=== PATIENT | male | born 1950 | race Caucasian/White ===

== ENCOUNTER 2016-12-08 08:10 | Emergency (ER) | payer MEDICARE, OTHER ==
[2016-12-08 08:26] VITALS: BP 149/93
--- NOTE | 2016-12-08 08:36 | UC ---
Throat Pain/Nasal Fabian HPI - HPI Summary HPI Summary: 3 weeks of worsening sinus pain congestion and nasal drainage no fevers - History of Current Complaint Chief Complaint: UCGeneralIllness Stated Complaint: COUGH,CHEST CONGESTION,SINUS Time Seen by Provider: 12/08/16 08:30 Hx Obtained From: Patient Onset/Duration: Gradual Onset, Lasting Weeks - 3, Still Present Severity: Moderate Pain Intensity: 5 Pain Scale Used: 0-10 Numeric Cough: None Associated Signs & Symptoms: Positive: Sinus Discomfort, Nasal Discharge - Allergies/Home Medications Allergies/Adverse Reactions: Allergies Allergy/AdvReac Type Severity Reaction Status Date / Time No Known Allergies Allergy Verified 12/08/16 08:17 Home Medications: Home Medications Phenylephrine-Diphenhydramine- [Mucinex Sinus-Max Day/Nig] 1 cap PO SEE INSTRUCTIONS PRN 12/08/16 [History Confirmed 12/08/16] PMH/Surg Hx/FS Hx/Imm Hx Previously Healthy: No Endocrine History Of: Reports: Dyslipidemia Cardiovascular History Of: Reports: Hypertension - Surgical History Surgical History: Yes Surgery Procedure, Year, and Place: bladder sling 2012. prostate surgery - Family History Known Family History: Positive: None Family History: no reported family medical issues in lineage - Social History Occupation: Retired Lives: With Family Alcohol Use: Rare Substance Use Type: None Smoking Status (MU): Never Smoked Tobacco Review of Systems Constitutional: Negative Skin: Negative Eyes: Negative ENT: Nasal Discharge Respiratory: Negative Cardiovascular: Negative Gastrointestinal: Negative Genitourinary: Negative Motor: Negative Neurovascular: Negative Musculoskeletal: Negative Neurological: Headache - frontal ethmoid sinus area Psychological: Negative All Other Systems Reviewed And Are Negative: Yes Physical Exam Triage Information Reviewed: Yes Appearance: Well-Appearing, No Pain Distress, Well-Nourished Vital Signs: Initial Vital Signs Temp 98.9 F 12/08/16 08:22 Pulse 69 12/08/16 08:22 Resp 20 12/08/16 08:22 BP 149/93 12/08/16 08:22 Pulse Ox 96 12/08/16 08:22 Vital Signs Reviewed: Yes Eye Exam: Normal Eyes: Positive: Conjunctiva Clear ENT Exam: Normal ENT: Positive: Normal ENT inspection, Hearing grossly normal, Pharynx normal, Nasal congestion, TMs normal. Negative: Nasal drainage, Tonsillar swelling, Tonsillar exudate, Trismus, Muffled/hoarse voice Dental Exam: Normal Neck exam: Normal Neck: Positive: Supple, Nontender, No Lymphadenopathy Respiratory Exam: Normal Respiratory: Positive: Chest non-tender, Lungs clear, Normal breath sounds, No respiratory distress, No accessory muscle use Cardiovascular Exam: Normal Cardiovascular: Positive: RRR, No Murmur, Pulses Normal, Brisk Capillary Refill Musculoskeletal Exam: Normal Musculoskeletal: Positive: Strength Intact, ROM Intact, No Edema Neurological Exam: Normal Neurological: Positive: Alert, Muscle Tone Normal Psychological Exam: Normal Skin Exam: Normal Throat Pain/Nasal Course/Dx - Course Course Of Treatment: Augmentin, flonase, mucinex d cool mist humidifer, follow with pcp re-check prn - Differential Dx/Diagnosis Differential Diagnosis/HQI/PQRI: Influenza, Pharyngitis, Sinusitis, URI Provider Diagnoses: Sinusitis Discharge - Discharge Plan Condition: Stable Disposition: HOME Prescriptions: Amoxicillin/Clavulanate TAB* [Augmentin TAB 875*] 875 mg PO BID #20 tab Fluticasone NASAL SPRAY 50MCG* [Flonase NASAL SPRAY 50MCG*] 2 spray BOTH NARES DAILY #1 btl Patient Education Materials: How to Use Nasal [place] (ED), Sinusitis (ED), Decongestant/Expectorant (By mouth) Referrals: No Primary Care Phys,NOPCP [Medical Doctor] - Additional Instructions: Follow with your primary care provider or return as needed should symptoms worsen or fail to improve
== END 2016-12-08 08:44 | disposition home or self-care (01) ==
LOC: UCCORT 08:10
DX: R09.81 Nasal congestion (principal); J32.9 Chronic sinusitis, unspecified
CPT/HCPCS: 99212; G0463

== ENCOUNTER 2017-05-28 11:46 | Emergency (ER) | payer MEDICARE, OTHER ==
[2017-05-28] MEDS ORDERED: EPINEPHrine AMP 1 MG/ML IM ONE (11:53)
[2017-05-28] MEDS ORDERED: diPHENhydraMINE IV* 50 MG/ML 1 ml VIAL (BENADRYL) IV ONE (11:54)
[2017-05-28] MEDS ORDERED: methylPREDNISolone 125 MG* 2 ML VIAL IV ONE (11:54)
[2017-05-28] MEDS ORDERED: Famotidine IV* 10 MG/ML 2 ML (20 mg) IV SLOW PU ONE (11:55)
[2017-05-28] MEDS ORDERED: Famotidine IV* 10 MG/ML 2 ML (20 mg) ONE (11:56)
[2017-05-28] MEDS ORDERED: NS 0.9% 1000 ML* 1,000 ML IV ONE (11:56)
--- NOTE | 2017-05-28 11:56 | UC ---
Progress - Progress Note Progress Note: Pt and examined, agree with [employer]. To ED via EMS.
--- NOTE | 2017-05-28 11:58 | UC ---
Allergic Reaction HPI - HPI Summary HPI Summary: allergic reaction to something---no known be sting usual medications and meals-- - History of Current Complaint Chief Complaint: UCAllergicReaction Stated Complaint: ALLERGIC REACTION Time Seen by Provider: 05/28/17 11:50 Hx Obtained From: Patient Onset/Duration: Sudden Onset, Still Present Severity Initially: Mild Severity Currently: Severe Location: Diffuse Character: Swelling - mouth. tounge, throat tight Aggrevating Factor(s): Nothing Alleviating Factor(s): Nothing Associated Signs And Symptoms: Positive: Throat Tightening, Other: - mouth, tounge and lips swollen - Related Hx Possible Reaction To: Unknown - Allergies/Home Medications Allergies/Adverse Reactions: Allergies Allergy/AdvReac Type Severity Reaction Status Date / Time No Known Allergies Allergy Verified 12/08/16 08:17 PMH/Surg Hx/FS Hx/Imm Hx Previously Healthy: No Endocrine History: Dyslipidemia Cardiovascular History: Hypertension - Surgical History Surgical History: Yes Surgery Procedure, Year, and Place: bladder sling 2012. prostate surgery - Family History Known Family History: Positive: None Family History: no reported family medical issues in lineage - Social History Occupation: Retired Lives: With Family Alcohol Use: Rare Substance Use Type: None Smoking Status (MU): Never Smoked Tobacco Review of Systems Constitutional: Negative Skin: Negative Eyes: Negative ENT: Negative Respiratory: Other - throat tight , tounge swollen, lips swollen Cardiovascular: Negative Gastrointestinal: Negative Genitourinary: Negative Motor: Negative Neurovascular: Negative Musculoskeletal: Negative Neurological: Negative Psychological: Negative All Other Systems Reviewed And Are Negative: Yes Physical Exam Triage Information Reviewed: Yes Appearance: Ill-Appearing, Pain Distress, Obese Vital Signs Reviewed: Yes Eye Exam: Normal Eyes: Positive: Conjunctiva Clear ENT Exam: Normal ENT: Positive: Normal ENT inspection, Hearing grossly normal, Other: - tounge lips swollen unable to vusualize pharynx past tounge. Negative: Nasal congestion, Nasal drainage Dental Exam: Normal Neck exam: Normal Neck: Positive: Supple, Nontender, No Lymphadenopathy Respiratory Exam: Normal Respiratory: Positive: Chest non-tender, Lungs clear, Normal breath sounds, No respiratory distress, No accessory muscle use Cardiovascular Exam: Normal Cardiovascular: Positive: RRR, No Murmur, Pulses Normal, Brisk Capillary Refill Musculoskeletal Exam: Normal Musculoskeletal: Positive: Strength Intact, ROM Intact, No Edema Neurological Exam: Normal Neurological: Positive: Alert, Muscle Tone Normal Psychological Exam: Normal Skin Exam: Normal Re-Evaluation - Re-Evaluation First Eval Change: Unchanged - no real change in status with epi, solumedrol, benadryl, and pepcid--- Allergic Reaction Course/Dx - Course Course Of Treatment: solumedrol, epi, pepcid, benadryl iv ns -[place] [facility] [place] - Differential Dx/Diagnosis Differential Diagnosis/HQI/PQRI: Airway Obstruction, Anaphylaxis, Angioedema Provider Diagnoses: Impending airwat obstruction - Physician Notification/Consults Discussed Patient Care With: Kita Laguna Time Discussed With Above Provider: 12:05 Instructed by Provider To: Transfer Discharge - Discharge Plan Condition: Guarded Disposition: TRANS HIGHER LVL OF CARE FAC Referrals: Wayne Miles MD [Primary Care Provider] -
[2017-05-28 12:00] VITALS: BP 135/75
== END 2017-05-28 12:07 | disposition short-term general hospital (02) ==
LOC: UCEAST 11:46
DX: J98.8 Other specified respiratory disorders (principal); I10 Essential (primary) hypertension; E78.5 Hyperlipidemia, unspecified; E66.9 Obesity, unspecified
CPT/HCPCS: 96360; 96361; 96372; 96374; 96375; 99213; G0463; J0171; J1200; J2930

== ENCOUNTER 2017-05-28 12:30 | Emergency (ER) | payer MEDICARE, OTHER ==
--- NOTE | 2017-05-28 13:32 | ED ---
Throat Pain/Nasal Congestion - HPI Summary HPI Summary: Pt here w/ lip and tongue swelling today which triggered difficulty swallowing. Went to and received epi, solumedrol, pepcid, benadryl. Pt reports swelling has improved since receiving these medications and swallowing easier. No difficulty breathing nor wheezing. Pt admits he noticed a small amount of upper lip tingling/swelling last night but didn't think much of it as he's had lip swelling episodes in the past. The first time was a few years ago - [place] a [place] and developed significant lip swelling - pt and assumed he was having a reaction to khmer fries seasoning and took benadryl - swelling eventually went down over the next 2 days. Another time, same thing happened after going to [facility] - wasn't sure if he ate a food that triggered this - again took benadryl and swelling eventually resolved. He reports this is the first time he's had 2 consecutive days of swelling of lips and first time he's had tongue swelling. Also this time, he was eating food prepared at home and all part of his routine. No new detergents, cosmetics, medications, plant/ animal exposures, insect bites, etc. Denies rash, itching, ab pain, N/V/D, wheezing, trouble breathing, eye swelling. He does take verapamil and possibly HCTZ w/ FRIDA inhibitor (has taken for years). Takes a daily ASA 81mg. Took aleve 2 days ago for shoulder pain (has this from [id number]). No h/o anaphylaxis nor angioedema. - History of Current Complaint Chief Complaint: EDAllergicReaction Time Seen by Provider: 05/28/17 12:49 Hx Obtained From: Patient, Family/Quartz Cutter - - Allergies/Home Medications Allergies/Adverse Reactions: Allergies Allergy/AdvReac Type Severity Reaction Status Date / Time No Known Allergies Allergy Verified 05/28/17 12:57 PMH/Surg Hx/FS Hx/Imm Hx Previously Healthy: Yes Endocrine/Hematology History: Denies: Hx Anticoagulant Therapy, Hx Blood Disorders, Hx Thyroid Disease, Autoimmune Disease Cardiovascular History: Reports: Hx Hypertension - verapamil, HCTZ/ Respiratory History: Denies: Hx Asthma - Cancer History Cancer Type, Location and Year: Prostate CA 2010 - Surgical History Surgery Procedure, Year, and Place: bladder sling 2012. prostate surgery Infectious Disease History: No Infectious Disease History: Denies: Hx Clostridium Difficile, Hx Hepatitis, Hx Human Immunodeficiency Virus (HIV), Hx of Known/Suspected MRSA, Hx Shingles, Hx Tuberculosis, Hx Known/ Suspected VRE, Hx Known/Suspected VRSA, History Other Infectious Disease, Traveled Outside the [place] in Last 30 Days - Family History Known Family History: Positive: None Family History: no reported family medical issues in lineage - Social History Occupation: Employed Part-time Lives: With Family Alcohol Use: Occasionally Alcohol Amount: 2 beers a week Hx Substance Use: No Substance Use Type: Reports: None Hx Tobacco Use: No Smoking Status (MU): Never Smoked Tobacco Review of Systems Constitutional: Negative Negative: Fever, Chills, Fatigue Eyes: Negative Negative: Photophobia, Blurred Vision, Diplopia, Drainage, Erythema ENT: Other - tongue/lip swelling as in HPI Negative: Dental Pain, Sore Throat, Ear Ache, Nasal Discharge Cardiovascular: Negative Negative: Palpitations, Chest Pain Respiratory: Negative Negative: Shortness Of Breath, Cough Gastrointestinal: Negative Negative: Abdominal Pain, Vomiting, Diarrhea, Nausea Positive: no symptoms reported Musculoskeletal: Negative Skin: Negative Negative: Rash Neurological: Negative Negative: Headache, Weakness, Paresthesia, Numbness Psychological: Normal All Other Systems Reviewed And Are Negative: Yes Physical Exam Triage Information Reviewed: Yes Vital Signs On Initial Exam: Initial Vitals Temp Pulse Resp BP Pulse Ox 99.0 F 70 16 174/90 97 05/28/17 12:59 05/28/17 12:59 05/28/17 12:59 05/28/17 12:59 05/28/17 12:59 Vital Signs Reviewed: Yes Appearance: Positive: Well-Appearing, No Pain Distress, Well-Nourished Skin: Positive: Warm, Dry - lips appear mildly edematous (lower > upper) - no rash observed over torso, head, extremities Head/Face: Positive: Normal Head/Face Inspection Eyes: Positive: Normal, EOMI, ROMEL, Conjunctiva Clear - no edema of [place] ENT: Positive: Hearing grossly normal, Pharynx normal, TMs normal, Other - tongue edema Lt > Rt - subtle muffled voice; handling secretions well. Negative : Nasal congestion, Nasal drainage, Tonsillar swelling, Tonsillar exudate Neck: Positive: Supple, Nontender, No Lymphadenopathy Respiratory/Lung Sounds: Positive: Clear to Auscultation, Breath Sounds Present. Negative: Stridor, Tracheal Deviation, Wheezes Cardiovascular: Positive: Normal, RRR, Pulses are Symmetrical in both Upper and Lower Extremities, S1, S2. Negative: Murmur, Rub, Leg Edema Left, Leg Edema Right Abdomen Description: Positive: Nontender, Soft Bowel Sounds: Positive: Present Musculoskeletal: Positive: Normal, Strength/ROM Intact Neurological: Positive: Normal, Sensory/Motor Intact, Alert, Oriented to Person Place, Time, CN Intact II-III Psychiatric: Positive: Normal - [place] Coma Scale Coma Scale Total: 15 Diagnostics - Vital Signs Vital Signs Temp Pulse Resp BP Pulse Ox 05/28/17 12:59 99.0 F 70 16 174/90 97 - Laboratory Lab Statement: Any lab studies that have been ordered have been reviewed, and results considered in the medical decision making process. Re-Evaluation - Re-Evaluation First Eval Change: Improved EENT Course/Dx - Course Course Of Treatment: Pt presented this morning to w/ lip and tongue swelling. Was sent here for monitoring after receiving epi, solumedrol, pepcid, benadryl and fluids - improved. H/o similar presentation minus tongue swelling. Suspect angioedema (possibly hereditary based on lack of pruritis, uriticaria, breathing sx, etc). Preliminary labs ordered here today - advised pt to stop all meds that could trigger reaction and start anti-histamine. May complete prednisone course for next 4 days (5 total). Epi pen provided in the event he has a future event. Explained importance of close f/u w/ PCP. Reviewed danger s/ sx of when to return to ED. Pt and voice understanding. - Diagnoses Provider Diagnoses: Angioedema Discharge - Discharge Plan Condition: Stable Disposition: HOME Prescriptions: Epinephrine [Epipen 2-Meir] 0.3 mg IM ONCE PRN #1 inj PRN Reason: Allergy Symptoms predniSONE TAB* [Deltasone TAB*] 40 mg PO DAILY #8 tab Patient Education Materials: Angioedema (ED) Referrals: Wayne Miles MD [Primary Care Provider] - Additional Instructions: You appear to have angioedema today. The cause of this is not definitively clear however you have a few medications in your life that can trigger this reaction. Please stop the following and follow-up with your PCP tomorrow: *Verapamil *HCTZ/Lisinopril *NSAID's: aleve (naproxen), advil (ibuprofen), aspirin You may opt to take an antihistamine at nighttime to aid in prevention if the root cause of this swelling is allergic in nature. If it is not, then an anti- histamine will not be helpful. You were also provided with an epi pen today in the event you have return of oral swelling with trouble breathing or swallowing. If you inject this medication, please go directly to the nearest emergency department for evaluation. You may also take benadryl 50mg if this occurs. Some preliminary blood tests were ordered today. You may review results with your PCP and further testing may be necessary to asses for allergic angioedema versus hereditary. Call your PCP today to schedule appointment for follow-up tomorrow.
[2017-05-28 16:40] LABS: Hematocrit 45 % (42-52); Hemoglobin 15.3 g/dl (14.0-18.0); Mean Corpuscular HGB Conc 34 g/dl (31-36); Mean Corpuscular Hemoglobin 29 pg (27-31); Mean Corpuscular Volume 83 fL (80-94); Mean Platelet Volume 9 um3 (7.4-10.4); Red Blood Count 5.36 10^6/ul (4.0-5.4); Red Cell Distribution Width 14 % (10.5-15); White Blood Count 10.4 10^3/ul (3.5-10.8)
[2017-05-28 16:55] LABS: Albumin 4.3 g/dL (3.2-5.2); BUN/Creatinine Ratio 22.5 (8-20); C Reactive Protein 14.17 mg/L (< 5.00); Calcium 9.6 mg/dL (8.6-10.3); Direct Bilirubin 0.1 mg/dL (0.03-0.18); EGFR African American 124.8 (>60); Globulin 3.3 g/dL (2-4); Indirect Bilirubin 0.5 mg/dL (0.3-1.0); Potassium 3.8 mmol/L (3.5-5.0); Total Bilirubin 0.6 mg/dL (0.2-1.0); Total Protein 7.6 g/dL (6.4-8.9)
[2017-05-28 17:22] VITALS: BP 152/87
[2017-05-28 18:13] LABS: Erythrocyte Sed Rate 14 mm/Hr (0-40)
== END 2017-05-28 17:12 | disposition home or self-care (01) ==
LOC: ED 12:30
DX: T78.3XXA Angioneurotic edema, initial encounter (principal)
CPT/HCPCS: 36415; 80048; 80076; 85025; 85652; 86140; 86160; 99284